=== PATIENT | female | born 1960 | race Caucasian/White ===

== ENCOUNTER 2017-02-24 09:03 | Day surgery (SDC) | payer BC ==
[~2017-02-24 09:03] MED LIST: RINGER'S SOLUTION,LACTATED 1,000 ML IV PRN
[2017-02-24] MEDS: RINGER'S SOLUTION,LACTATED 1,000 ML IV ONE ×2 (09:25→10:45)
[2017-02-24] MEDS: ceFAZolin SODIUM 1 GM VIAL IV PRN (10:00)
--- NOTE | 2017-02-24 11:21 | OR ---
Operative Report - Dictated Report Narrative: Date: 02/24/2017 Surgeon: David Perez M.D. Attenuator: Anival Lund PA-C Preoperative diagnosis: Right extra-articular distal radius fracture Postoperative diagnosis: Right displaced, comminuted extra-articular distal radius fracture Operation: 1 - Open reduction internal fixation of right extra-articular distal radius fracture 2 - Intraoperative interpretation of x-rays Retained implants: [employer] D rad right standard distal radius plate with associated screws Anesthesia: General plus regional Tourniquet time: 75 Minutes at 250 mmHg Estimated blood loss: Minimal Drains: None Specimen: None Complications: None Indications: Hoa is a 56-year-old female who injured the right arm after slipping and falling backwards on the ice attempting to brace herself with her right hand. They were initially treated in the ER and splinted. Seen in the clinic and discuss the options for treatment. She wished to proceed with surgical treatment. The risks and benefits alternatives were discussed. Risks of , blood clots, bleeding, infection, nerve/tendon/blood vessel injury, malunion, nonunion, failure of implants, prominent implants, delayed tendon rupture, arthrosis, stiffness, persistent pain, and need for additional procedures were discussed. Consent was obtained in the clinic. Procedure: After marking the correct extremity in the preoperative holding area, the patient was taken to the operating room. A timeout was performed. Anesthesia placed a regional block followed by general anesthetic. The arm was placed on an armboard with all bony prominences well-padded on the rest of the body. IV antibiotics consisting of 1 g of Ancef was administered. A well-padded tourniquet was applied to the upper surgical arm. The arm was pre-scrubbed with chlorhexidine and prepped and draped in a standard sterile fashion. After exsanguinating the extremity and inflating the tourniquet to 250 mmHg, a longitudinal incision was made over the flexor carpi radialis. This was sharply dissected down through the skin to the tendon sheath. This was incised in line with the tendon. The tendon was mobilized radially and the deep fascia was incised. The flexor pollicis longus was mobilized ulnarly exposing the pronator quadratus. Pronator quadratus was elevated off the radial aspect of the distal radius exposing the fracture. The fracture was noted to have some extra-articular comminution of the volar cortex. There was no intra-articular extension. Using mini C-arm, the fracture was reduced and preliminarily pinned in the place through the radial styloid. Once it was felt that we adequately preliminarily stabilized the fracture, the plate was pinned in the place. This was visualized on AP and lateral views to be centered over the distal radius as well as not excessively distal. Once it was felt that the plate was in the correct position a series of distal locking and proximal non-locking screws were placed. Mini C-arm was utilized in order to confirm the length and placement of the screws. Once the wrist was stabilized, final images were obtained to ensure that the screws were not prominent dorsally nor into the joint space. The distal radial ulnar joint was then stressed in supination and pronation and neutral, and it was noted to be stable. It was felt that the fracture was adequately stabilized and the wounds were then thoroughly irrigated. The pronator quadratus was repaired over the plate using 3-0 Vicryl. The wounds were again thoroughly irrigated and tourniquet was deflated. Hemostasis was obtained and there was no excessive bleeding. Subcutaneous tissue was closed with 3-0 Vicryl and the skin with interrupted 4- 0 nylon. Sterile dressings consisting of Xeroform, 4 x 4, soft roll, and a well -padded dorsal plaster short arm splint was applied. All sponge, sharp, and instrument counts were correct prior to closing the wounds. The patient was awoken and transferred to the postanesthesia care unit in stable condition.
--- NOTE | 2017-02-24 11:40 | OR ---
Anesthesia Procedure Note - Anesthesia Procedure Note Date of Service: 02/24/17 Narrative: Vital Signs - Last Taken Temp 37.3 C 02/24/17 11:30 Pulse 127 H 02/24/17 11:30 Resp 18 02/24/17 11:30 BP 115/64 02/24/17 11:30 Pulse Ox 94 02/24/17 11:30 O2 Oxygen Delivery Method Room Air 02/24/17 11:39 ANESTHESIA PROCEDURE NOTE Date of Procedure: 02/24/2017. Time of procedure: 934. Performed by: Logan Rascon CRNA Submarine Advisory Team Watch Officer: None. Preprocedure diagnosis: Distal radius fracture. Post procedure diagnosis: Same. Procedure: Right ultrasound guided axillary nerve block for postoperative analgesia. Indications: The patient is a 56 -year-old female, who is requesting right ultrasound-guided axillary nerve block for postoperative analgesia related to ORIF of the distal radius fracture. Findings: See below. Details of the procedure: The tissue over the intended target site was cleansed with ChloraPrep. 1 ml Lidocaine 1 % was infiltrated to the skin and subcutaneous tissue. Under sterile technique and ultrasound guidance a 22-gauge block needle was inserted to the right ulnar nerve. 5 mL's of 0.5% bupivacaine plus epinephrine 1:200,000 was injected after negative aspiration for blood. The needle was then advanced to the right median nerve. 10 mL of 0.5% bupivacaine plus epinephrine 1:200,000 was injected after negative aspiration for blood. The needle was then guided to the right radial nerve. 5 mL of 0.5% bupivacaine plus epinephrine 1 200,000 was injected after negative aspiration for blood . Finally the needle was guided to the musculocutaneous nerve where 5 mL of 0.5% bupivacaine plus epinephrine 1:200,000 was injected after negative aspiration for blood. Spread of local anesthetic around the nerves was observed throughout the injection with ultrasound visualization. The needle was removed intact. No complications were noted. The images were retained in the hospital medical database . EBL: Minimal. Fluids: N/A. Specimen: N/A. Post procedure condition: The patient tolerated the procedure well. No complications were noted. Thank you for this consultation. Logan Rascon CRNA
[2017-02-24 13:08] VITALS: BP 130/70
== END 2017-02-24 09:04 | disposition home or self-care (01) ==
LOC: AMB 09:03
PROVIDERS: ATTEND Orthopaedic Surgery
PROC: 0PSH04Z Reposition Right Radius with Internal Fixation Device, Open Approach (ICD-10-PCS; principal; 2017-02-24)
PROC: 3E0T3BZ Introduction of Anesthetic Agent into Peripheral Nerves and Plexi, Percutaneous Approach (ICD-10-PCS; 2017-02-24)
DX: S52.551A Other extraarticular fracture of lower end of right radius, initial encounter for closed fracture (principal); W01.0XXA Fall on same level from slipping, tripping and stumbling without subsequent striking against object, initial encounter; Z68.23 Body mass index [BMI] 23.0-23.9, adult